=== PATIENT | male | born 1950 | race Caucasian/White ===

== ENCOUNTER 2021-07-23 12:29 | Emergency (ER) | payer MEDICARE, BC ==
[2021-07-23] MEDS ORDERED: Sodium Chloride 0.9% 10 ML Syringe FLUSH PRN (12:45)
--- NOTE | 2021-07-23 15:05 | EDM.PDOC ---
ED HPI GENERAL MEDICAL PROBLEM - General Stated Complaint: SOB Time Seen by Provider: 07/23/21 12:30 Source of Information: Reports: Patient, RN Notes Reviewed, Other History Limitations: Reports: No Limitations - History of Present Illness INITIAL COMMENTS - FREE TEXT/NARRATIVE: This patient was brought to the emergency department by clinic personnel for evaluation of shortness of breath. He presented to the clinic today for the first time with a complaint of shortness of breath. He states he has had this for the last 2 weeks. When it began he initially had some chest pain with it but that quickly resolved. He has not had any further chest pain but states that he has shortness of breath every day. He typically has received his health care at another facility but is establishing care in his community now. In the clinic he had a thorough work-up to include EKG and labs with a troponin. EKG was a sinus rhythm with a left deviation axis deviation and his labs were within normal limits with the exception of his troponin which was 0.076. Because of this he was brought to the ER for a suspected non-STEMI. The patient continues to deny chest pain. He states he has mild difficulty breathing but has had it for 2 weeks. He denies nausea, vomiting, diaphoresis, neck pain, back pain. He reports he occasionally has palpitations and feels those and also states that he has "3 valves" that are not functioning correctly. His previous health care has been obtained through [facility]. ED ROS GENERAL - Review of Systems Review Of Systems: Comprehensive ROS is negative, except as noted in HPI. ED EXAM, GENERAL - Physical Exam Exam: See Below Exam Limited By: No Limitations General Appearance: Alert, No Apparent Distress Eye Exam: Bilateral Eye: Normal Inspection, PERRL Ears: Normal External Exam Nose: Normal Inspection Head: Atraumatic, Normocephalic Neck: Normal Inspection, Full Range of Motion Respiratory/Chest: No Respiratory Distress, Lungs Clear, Normal Breath Sounds, No Accessory Muscle Use Cardiovascular: Normal Peripheral Pulses, Regular Rate, Rhythm Extremities: Normal Inspection Neurological: Alert, Oriented Skin Exam: Warm, Dry, Intact #1 Interpretation EKG Date: 07/23/21 Time: 11:50 Rhythm: Other (Sinus rhythm with a first-degree block) Rate (Beats/Min): 80 [place]: LAD-Left Mayetta Deviation P-Wave: Present QRS: Normal ST-T: Normal QT: Normal Comparison: NA - No Prior EKG #2 Interpretation EKG Date: 07/23/21 Time: 17:51 Rhythm: Other (Sinus rhythm with first-degree block and PVCs) Rate (Beats/Min): 81 [place]: LAD-Left Mayetta Deviation P-Wave: Present QRS: Normal ST-T: Normal QT: Normal Comparison: No Change Course - Orders/Labs/Meds Orders: Active Orders 24 hr Category Date Time Status Chest 2V [CR] Stat Exams 07/23/21 13:10 Taken Sodium Chloride 0.9% [Saline Flush] Med 07/23/21 12:45 Active 10 ml FLUSH ASDIRECTED PRN Saline Lock Insert [OM.PC] Routine Oth 07/23/21 12:45 Ordered Medication Orders Sodium Chloride (Sodium Chloride 0.9% 10 Ml Syringe) 10 ml FLUSH ASDIRECTED PRN PRN Reason: Keep Vein Open Meds: Medications Generic Name Dose Route Start Last Admin Trade Name Freq PRN Reason Stop Dose Admin Sodium Chloride 10 ml 07/23/21 12:45 Sodium Chloride 0.9% 10 Ml Syringe FLUSH ASDIRECTED PRN Keep Vein Open - Re-Assessments/Exams Free Text/Narrative Re-Assessment/Exam: 07/23/21 15:02 This patient presents to the emergency department for evaluation of an elevated troponin. Given his history of valvular dysfunction with shortness of breath I am actually more concerned about heart failure than IM a bout of STEMI. I did contact at [facility] cardiology to speak with him about this patient. He confirmed my concern regarding heart failure and suggested a BN P, a 6-hour troponin level, and a chest x-ray. He also suggested the patient should be seen how; however can wait for outpatient appointment. He felt that based on the findings of these additional tests the patient may need to be started on Lasix but should be started on aspirin, 325 mg. The chest x-ray was obtained. Explained to the patient that we would need to do a repeat troponin in 6 hours and that we would keep him in the building until that time. He became quite upset by this and stated he would leave and come back in 6 hours for his blood draw. And formed him he would need to sign out AMA in order to do that and he was agreeable to this. The patient did sign out AMA, stating he would return at 6 PM for the additional blood draw. He states that he will wait for the results of those lab tests at that time. 07/23/21 18:05 This patient returned to the facility for a repeat troponin and EKG. His EKG is unchanged from earlier today. 07/23/21 18:42 This patient also had lab work which revealed a troponin of 0.096 which is slightly elevated from earlier today at 0.076. He also had a BN P that was 773. This is the first time he has had that lab test done. He denies any change in his symptoms of shortness of breath. He does not have any chest pain and is adamant that he has not had chest pain with this difficulty breathing. Denies nausea, vomiting, other symptoms or concerns. I going to start him on aspirin, 324 mg/day and instructed him to contact [facility] and make an appointment for next week. He was given the information to for this and his discharge papers. He was instructed to return to the emergency department immediately should he develop any chest pain or any change in his current symptoms. He was very agreeable with that. Departure - Departure Time of Disposition: 18:45 Disposition: Home, Self-Care 01 Condition: Good Clinical Impression: Heart failure Qualifiers: Heart failure type: unspecified Heart failure chronicity: acute Qualified Code(s): I50.9 - Heart failure, unspecified Instructions: Heart Failure, Self Care, [id number], Heart Failure Action Plan Referrals: PCP,None [Primary Care Provider] - Additional Instructions: Start taking 325 mg aspirin daily. Make an appointment with a supply requirements officer at [facility]. I spoke with Dr. Leyva today regarding your care; however, you can be seen by the first available supply requirements officer. You can reach their clinic at [phone]. Call them right away on Monday morning to make an appointment. If you develop any difficulty breathing or any chest pain, come to the ED immediately. - My Orders Last 24 Hours: My Active Orders 07/23/21 12:45 Sodium Chloride 0.9% [Saline Flush] 10 ml FLUSH ASDIRECTED PRN Saline Lock Insert [OM.PC] Routine 07/23/21 13:10 Chest 2V [CR] Stat - Assessment/Plan Last 24 Hours: My Active Orders 07/23/21 12:45 Sodium Chloride 0.9% [Saline Flush] 10 ml FLUSH ASDIRECTED PRN Saline Lock Insert [OM.PC] Routine 07/23/21 13:10 Chest 2V [CR] Stat
--- NOTE | 2021-07-23 22:01 | CR ---
CLINICAL DATA: Difficulty breathing. PA AND LATERAL CHEST, 23 JULY 2021: No priors. The heart is mildly enlarged. There is calcification of the aortic arch. The pulmonary vasculature does appear mildly prominent, suggesting mild pulmonary venous congestion. There are scattered reticular opacities throughout both lungs. There is blunting of both costophrenic angles posteriorly on the lateral view, consistent with small bilateral pleural effusions or pleural scar. No pneumothorax. No other significant findings. Job: [id number] MTDD
== END 2021-07-23 14:10 | disposition home or self-care (01) ==
LOC: LB.ED 12:29
DX: I50.9 Heart failure, unspecified (principal); I44.0 Atrioventricular block, first degree
CPT/HCPCS: 71046; 99285-25